=== PATIENT | male | born 1980 | race Caucasian/White ===

== ENCOUNTER 2020-08-14 06:15 | Inpatient (IN) ==
[2020-08-14] MEDS ORDERED: LORazepam 2 mg VIAL 1 ml IM ONE (06:29)
[2020-08-14] MEDS ORDERED: Lorazepam PYXIS KEY PRN (06:29)
[2020-08-14] MEDS ORDERED: Lorazepam PYXIS KEY ONE (06:31)
[2020-08-14 07:14] LABS: ABS Basophils 0.1 10^3/ul (0-0.2); ABS Lymphocytes 1.7 10^3/ul (1.0-4.8); ABS Monocytes 0.8 10^3/ul (0-0.8); ABS Neutrophils 9.6 10^3/ul (1.5-7.7); Eosinophil % 0.2 %; Hematocrit 45 % (42-52); Lymphocyte % 13.6 %; Mean Corpuscular HGB Conc 33 g/dL (31-36); Mean Corpuscular Hemoglobin 28 pg (27-31); Mean Corpuscular Volume 84 fL (80-94); Mean Platelet Volume 7.6 fL (7.4-10.4); Platelet Count 381 10^3/uL (150-450); Red Blood Count 5.41 10^6 /uL (4.18-5.48); Red Cell Distribution Width 14 % (10-15); White Blood Count 12.1 10^3/uL (3.5-10.8)
[2020-08-14 07:26] LABS: ALT 32 U/L (7-52); AST 21 U/L (13-39); Albumin 4.9 g/dL (3.2-5.2); Albumin/Globulin Ratio 1.9 (1-3); Alkaline Phosphatase 73 U/L (34-104); Anion Gap 15 mmol/L (2-11); BUN/Creatinine Ratio 14.7 (8-20); Blood Urea Nitrogen 15 mg/dL (6-24); CO2 Carbon Dioxide 21 mmol/L (22-32); Calcium 9.5 mg/dL (8.6-10.3); Chloride 102 mmol/L (101-111); EGFR African American 98.4 (>60); EGFR Non-African American 81.3 (>60); Globulin 2.6 g/dL (2-4); Glucose 253 mg/dL (70-100); Potassium 3.9 mmol/L (3.5-5.0); Sodium 138 mmol/L (135-145); Total Protein 7.5 g/dL (6.4-8.9)
[2020-08-14 07:37] LABS: Acetaminophen < 15 mcg/mL; Alcohol, S < 10 mg/dL (<10); Salicylate < 2.50 mg/dL (<30)
[2020-08-14 07:48] LABS: TSH Ultra Thyroid Stim Horm 1.34 mcIU/mL (0.34-5.60)
[2020-08-14] MEDS ORDERED: NS 0.9% 1000 ml BAG 1,000 ML IV ONE (08:29)
[2020-08-14] MEDS ORDERED: Al Hydrox/Mg Hydrox/Simet LIQ 30 ML UDC PO PRN (13:01)
[2020-08-14] MEDS: Vitamin THERAPEUTIC TAB PO SCH (16:59)
[2020-08-15] MEDS: Vitamin THERAPEUTIC TAB PO SCH (08:37)
[2020-08-16] MEDS: Vitamin THERAPEUTIC TAB PO SCH (09:14)
[2020-08-17] MEDS: Vitamin THERAPEUTIC TAB PO SCH (10:48)
[2020-08-18] MEDS: Vitamin THERAPEUTIC TAB PO SCH (09:36)
[2020-08-19] MEDS: Vitamin THERAPEUTIC TAB PO SCH (09:19)
[2020-08-20 08:36] LABS: HDL Cholesterol 40.1 mg/dL
[2020-08-20] MEDS: Vitamin THERAPEUTIC TAB PO SCH (10:00)
[2020-08-21] MEDS: Vitamin THERAPEUTIC TAB PO SCH (10:14)
[2020-08-21] MEDS ORDERED: Paliperidone SUSTENNA 156 MG/1 ML IM ONE (11:03)
[2020-08-22] MEDS: Vitamin THERAPEUTIC TAB PO SCH (13:52)
[2020-08-23] MEDS: Vitamin THERAPEUTIC TAB PO SCH (07:56)
[2020-08-23] MEDS: Analgesic BALM 114 GM TOPICAL PRN ×2 (16:28→20:41)
[2020-08-24 09:11] VITALS: BP 128/83
[2020-08-24] MEDS: Vitamin THERAPEUTIC TAB PO SCH (09:11)
== END 2020-08-24 12:00 | disposition home or self-care (01) | DRG 885 ==
LOC: ED 06:15 → BSU 13:01
PROVIDERS: ADMIT Psychiatry & Neurology Psychiatry; ATTEND Psychiatry & Neurology Psychiatry

== ENCOUNTER 2022-06-22 12:50 | Inpatient (IN) ==
[2022-06-22] MEDS ORDERED: LORazepam 2 mg VIAL 1 ml ONE ×2 (12:59→13:03)
[2022-06-22] MEDS ORDERED: Haloperidol 5 mg/ml SDV IV/IM 5 MG/ML AMP ONE (13:03)
[2022-06-22 13:37] LABS: ABS Lymphocytes 1.2 10^3/ul (1.0-4.8); ABS Monocytes 0.5 10^3/ul (0-0.8); ABS Neutrophils 5.1 10^3/ul (1.5-7.7); Eosinophil % 0.3 %; Hematocrit 45 % (42-52); Hemoglobin 14.5 g/dL (14.0-18.0); Lymphocyte % 17.2 %; Mean Corpuscular HGB Conc 32 g/dL (31-36); Mean Corpuscular Hemoglobin 26 pg (27-31); Mean Corpuscular Volume 82 fL (80-94); Mean Platelet Volume 7.3 fL (7.4-10.4); Nucleated Red Blood Cells % 0.1; Platelet Count 326 10^3/uL (150-450); Red Blood Count 5.49 10^6 /uL (4.18-5.48); Red Cell Distribution Width 14 % (10-15); White Blood Count 6.8 10^3/uL (3.5-10.8)
[2022-06-22 14:29] LABS: ALT 20 U/L (7-52); AST 17 U/L (13-39); Acetaminophen < 15 mcg/mL; Albumin 4.5 g/dL (3.2-5.2); Albumin/Globulin Ratio 1.9 (1-3); Alcohol, S < 13 mg/dL (<13); Alkaline Phosphatase 79 U/L (35-149); Anion Gap 12 mmol/L (2-11); Blood Urea Nitrogen 13 mg/dL (6-24); CO2 Carbon Dioxide 22 mmol/L (22-32); Calcium 9.4 mg/dL (8.6-10.3); Chloride 104 mmol/L (101-111); Creatinine, Serum 1.05 mg/dL (0.67-1.17); Globulin 2.4 g/dL (2-4); Glucose 250 mg/dL (70-100); Potassium 4.3 mmol/L (3.5-5.0); Salicylate < 2.50 mg/dL (<30); Sodium 138 mmol/L (135-145); Total Protein 6.9 g/dL (6.4-8.9)
[2022-06-22 14:42] LABS: TSH Ultra Thyroid Stim Horm 1.08 mcIU/mL (0.34-5.60)
[2022-06-22 17:04] LABS: Urine Benzodiazepine Screen None Detected (None Detect); Urine Cannabinoids Screen None Detected (None Detect); Urine Opiates Screen None Detected (None Detect)
[2022-06-22] MEDS ORDERED: Ziprasidone IM 20 mg VIAL 1 ml VIAL IM ONE (17:22)
[2022-06-22] MEDS ORDERED: Al Hydrox/Mg Hydrox/Simet LIQ 30 ML UDC PO PRN (20:54)
[2022-06-23] MEDS: Vitamin THERAPEUTIC TAB PO SCH (08:19)
[2022-06-24] MEDS: Vitamin THERAPEUTIC TAB PO SCH (08:16)
[2022-06-25] MEDS: Vitamin THERAPEUTIC TAB PO SCH (09:13)
[2022-06-26] MEDS: Vitamin THERAPEUTIC TAB PO SCH (07:17)
[2022-06-27] MEDS: Vitamin THERAPEUTIC TAB PO SCH (07:24)
[2022-06-28] MEDS: Vitamin THERAPEUTIC TAB PO SCH (07:27)
[2022-06-28] MEDS ORDERED: chlorproMAZINE 25 MG/ML 2 ML (50 MG) ONE (15:21)
[2022-06-29] MEDS: Vitamin THERAPEUTIC TAB PO SCH (11:42)
[2022-06-30] MEDS: Vitamin THERAPEUTIC TAB PO SCH (08:39)
[2022-07-01] MEDS: Vitamin THERAPEUTIC TAB PO SCH ×2 (07:11→12:24)
[2022-07-01] MEDS ORDERED: OLANZapine IM (NF) 10 MG VIAL IM PRN (12:50)
[2022-07-01] MEDS ORDERED: OLANZapine IM (NF) 10 MG VIAL IM ONE (13:04)
[2022-07-05] MEDS ORDERED: Paliperidone SUSTENNA 234 MG/1.5 ML IM ONE (10:36)
[2022-07-08] MEDS ORDERED: Paliperidone SUSTENNA 156 MG/1 ML IM ONE (11:15)
[2022-07-12 09:08] VITALS: BP 134/73
== END 2022-07-12 13:20 | disposition home or self-care (01) | DRG 750 ==
LOC: ED 12:50 → BSU 21:20
PROVIDERS: ADMIT Psychiatry & Neurology Psychiatry; ATTEND Psychiatry & Neurology Psychiatry